=== PATIENT | male | born 1980 | race Caucasian/White ===

== ENCOUNTER 2020-01-26 18:28 | Emergency (ER) | payer BC, OTHER ==
[~2020-01-26] VITALS: Ht 172.7 cm; Wt 72.6 kg
[2020-01-26 20:44] LABS: Basophils # (auto) 0.1 10 ^3/uL (0-0.2); Basophils % (auto) 0.9 % (0.0-2.0); Eosinophils # (auto) 0.1 10 ^3/uL (0-0.8); Eosinophils % (auto) 1.4 % (0.0-7.0); Lymphocytes # (auto) 2.3 10 ^3/uL (0.4-5.4); Lymphocytes % (auto) 30.9 % (10.0-50.0); Mean Corpuscular Volume 91.1 fL (80.0-100.0); Monocytes # (auto) 0.4 10 ^3/uL (0-1.3); Monocytes % (auto) 5.4 % (0.0-12.0); Neutrophils # (auto) 4.6 10 ^3/uL (1.6-8.6); Neutrophils % (auto) 61.4 % (37.0-80.0); Platelet Count (auto) 268 10^3/uL (140-450); Red Blood Cells 4.82 10^6/uL (4.5-5.90); Red Cell Distribution Width 12.4 % (11.8-14.3); White Blood Cell 7.4 10^3/uL (4.4-10.8)
[2020-01-26 21:04] LABS: Alanine Aminotransferase 23 U/L (16-61); Albumin 4.5 g/dL (3.4-5.0); Anion Gap 7 (5-15); Aspartate Aminotransferase 21 U/L (15-37); BUN/Creatinine Ratio 5.4; Blood Urea Nitrogen 5 mg/dL (7-18); Calcium 10.1 mg/dL (8.5-10.1); Carbon Dioxide 28 mmol/L (21-32); Chloride 103 mmol/L (98-107); GFR African American 118 mL/min; GFR Non-African American 97 mL/min; Glucose 83 mg/dL (74-106); Magnesium 2.5 mg/dL (1.6-2.6); Partial Thromboplastin Time 25.6 sec (23.0-31.2); Potassium 3.4 mmol/L (3.5-5.1); Sodium 138 mmol/L (136-145)
[2020-01-26 21:09] LABS: Alkaline Phosphatase 89 U/L (45-117); Bilirubin, Total 2.6 mg/dL (0.2-1.0); Total Protein 8.5 g/dL (6.4-8.2)
[2020-01-26 23:56] LABS: Urine WBC None Seen /hpf (0 - 3)
[2020-01-27 00:07] LABS: Urine Amorphous Crystal MOD /hpf (None Seen); Urine Bacteria NONE SEEN /hpf (None Seen); Urine Blood Negative /uL (Negative); Urine Mucus FEW (None Seen); Urine Specific Gravity 1.015 (1.001-1.035)
[2020-01-27 02:26] VITALS: BP 137/76
== END 2020-01-27 02:45 | disposition short-term general hospital (02) ==
LOC: ER 18:28
DX: L72.0 Epidermal cyst (principal); G81.91 Hemiplegia, unspecified affecting right dominant side; R42 Dizziness and giddiness
CPT/HCPCS: 36415; 71045; 80053; 81001; 83735; 84484; 85025; 85379; 85610; 85730; 93005

== ENCOUNTER 2020-03-06 08:18 | Emergency (ER) | payer BC ==
[~2020-03-06] VITALS: Ht 172.7 cm; Wt 70.3 kg
[2020-03-06 08:47] VITALS: BP 136/85
== END 2020-03-06 09:17 | disposition home or self-care (01) ==
LOC: ER 08:18
DX: Z48.00 Encounter for change or removal of nonsurgical wound dressing (principal); F41.9 Anxiety disorder, unspecified

== ENCOUNTER → 2020-04-20 | Outpatient (CLI) | payer BC | END | disposition home or self-care (01) | LOC: LAB 10:54 | PROVIDERS: ATTEND Internal Medicine | DX: G93.0 Cerebral cysts (principal) | CPT/HCPCS: 36415; 82565; 84520 ==

== ENCOUNTER 2024-05-25 23:08 | Emergency (ER) | payer BC, OTHER ==
[~2024-05-25] VITALS: Ht 170.2 cm; Wt 74.5 kg
[2024-05-26] MEDS: FLUORESCEIN SOD OPTH TEST STRIP EACHEYE ONE ×2 (00:07→00:24)
[2024-05-26] MEDS: TETRACAINE HCL 0.5% OPTH(EYE) SOLN 4ML EACHEYE ONE (00:07)
[2024-05-26 00:08] VITALS: BP 141/82; PULSE 66; RESP 14; TEMP 98.4; O2SAT 100
--- NOTE | 2024-05-26 00:24 | ED.PDOC ---
Eye-HPI HPI Comments 44 YEAR OLD MALE PRESENTS TO ER WITH BILATERAL EYE COMPLAINT X1 DAY. PATIENT REPORTS THAT HE WAS STRETCHING WITH A "15 LB EXERCISE BAND" AT 9:00 P.M. PRIOR TO ARRIVAL TO ER WHEN THE EXERCISE BAND "FLEW UP" AND HIT HIM IN HIS FACE AND HAS SINCE BEEN EXPERIENCING 4/10 BILATERAL EYE PAIN. DENIES HEAD INJURY/LOC. DENIES USE OF MEDICATIONS FOR CURRENT SYMPTOMS. STATES HE DOES HAVE MINIMAL BLURRED VISION AND PHOTOSENSITIVITY TO RIGHT EYE AND STATES HIS SYMPTOMS HAVE BEEN IMPROVING. PATIENT PRESENTS TO ER AMBULATORY ON ARRIVAL, IN NO DISTRESS. DENIES HEADACHE, NAUSEA/VOMITING, NUMBNESS/TINGLING, EYE DRAINAGE, DOUBLE VISION/VISUAL FLOATERS, SKIN CHANGES OR ANY FURTHER SYMPTOMS/COMPLAINTS Chief Complaint: Eye Problem Time Seen by MD: 23:36 Primary Care Provider: UDAY Joiner Notes: Nurses Notes, Medications, Allergies Allergies: Coded Allergies: NO KNOWN ALLERGIES (Unverified , 03/06/20) Home Meds Active Scripts Erythromycin (Erythromycin) 5 Mg/Gm Oin, 1 MG OP 6XD for 7 Days, #1 OIN 0 Refills Prov:YOKO HERRERA 05/26/24 Information Source: Patient Mode of Arrival: Ambulatory Past Medical History Past Medical History (Other): BRAIN MASS Surgical History (Other): CRANIOTOMY -2020 Family History Family History: Unknown Social History Smoker: Non-Smoker Alcohol: Denies ETOH Use Drugs: Denies Drug Use Lives In: Home Constitutional: denies: chills, diaphoresis, fatigue, fever, malaise, sweats, weakness, others EENTM: reports: others ( STATED IN HPI) Respiratory: denies: cough, hemoptysis, orthopnea, SOB at rest, shortness of breath, SOB with excertion, stridor, wheezing, others Cardiovascular: denies: chest pain, dizzy spells, diaphoresis, Dyspnea on exertion, edema, irregular heart beat, left arm pain, lightheadedness, palpi tations, PND, syncope, others Gastrointestinal: denies: abdomen distended, abdominal pain, blood streaked bowels, constipated, diarrhea, dysphagia, difficulty swallowing, hematemesis, melena, nausea, poor appetite, poor fluid intake, rectal bleeding, rectal pain, vomiting, others Genitourinary: denies: burning, dysuria, flank pain, frequency, hematuria, incontinence, penile discharge, penile sore, pain, testicle pain, testicle swelling, urgency, others Neurological: denies: dizziness, fainting, headache, left sided numbness, left sided weakness, numbness, paresthesia, pre-existing deficit, right sided numbness, right sided weakness, seizure, speech problems, tingling, tremors, weakness, others Musculoskeletal: denies: back pain, gout, joint pain, joint swelling, muscle pain, muscle stiffness, neck pain, others Integumetry: denies: bruises, change in color, change in hair/nails, dryness, laceration, lesions, lumps, rash, wounds, others Allergic/Immunocompromised: denies: Difficulty Healing, Frequent Infections, Hives, Itching, others Hematologic/Lymphatic: denies: anemia, blood clots, easy bleeding, easy bruis ing, swollen glands, others Endocrine: denies: excessive hunger, excessive sweating, excessive thirst, exc essive urination, flushing, intolerance to cold, intolerance to heat, unexplained weight gain, unexplained weight loss, others Psychiatric: denies: anxiety, bipolar disorder, depression, hopeless, panic disorder, schizophrenia, sleepless, suicidal, others Physical Exam General Appearance: No Apparent Distress HEENT: PERRL/EOMI, Pharynx Normal, TMs Normal, Other (WOOD'S LAMP EXAMINATION BILATERAL EYES-SMALL CORNEAL ABRASION NOTED ON RIGHT AND MILD SUBCONJUNCTIVAL INJECTION NOTED BILATERALLY, NO DRAINAGE TO BILATERAL EYES NOTED. NO HYPHEMA OR TEAR DROP SIGN NOTED BILATERALLY. REMAINDER WOOD'S LAMP EXAMINATION- UNREMARKABLE. VISUAL ACUITY RIGHT EYE 20/20, VISUAL ACUITY LEFT EYE 20/20, VISUAL ACUITY USING BOTH EYES 20/20. NO SKIN CHANGES APPRECIATED TO BILATERAL EYES. ATTEMPTED TO CHECK IOP BUT [facility] WAS UNABLE TO BE LOCATED AT THIS HOSPITAL) Neck: Full Range of Motion, Non-Tender, Normal Respiratory: Chest Non-Tender, Lungs Clear, No Accessory Muscle Use, No Respiratory Distress, Normal Breath Sounds Cardiovascular: No Murmur, No Gallop, Regular Rate/Rhythm Breast Exam: Deferred Gastrointestinal: NOT DONE Genitalia: Deferred Pelvic: Deferred Rectal: Deferred Extremities: Normal capillary refill, Normal range of motion Neurologic: Alert, sports medicine specialist II-XII nml as Tested, No Motor Deficits, Normal Affect, Normal Mood, No Sensory Deficits Cerebellar Function: Normal Reflexes: Normal Skin: Dry, Normal Color, Warm Lymphatic: No Adenopathy Was a procedure done? Was a procedure done?: No Sedation Sedation?: No EENT DIFF Eye: Foreign Body-Intraocular, Glaucoma, Globe Rupture, Orbital Cellulits, Periorbital Cellulits X-Ray, Labs, Meds, VS Vital Signs Date Time Temp Pulse Resp B/P (MAP) Pulse Ox O2 Delivery O2 Flow Rate FiO2 05/26/24 00:08 98.4 66 14 141/82 (101) 100 98.4 05/26/24 00:08 66 14 100 Room Air 05/25/24 23:32 98.4 66 14 141/82 (101) 100 Current Medications Medications (Trade) Dose Ordered Sig/Tor Route Start Time Stop Time Status Last Admin Fluorescein Sodium (Ful-Alice) 1 mg ONCE ONCE EACHEYE 05/26/24 00:00 05/26/24 00:02 DC 05/26/24 00:07 Tetracaine HCl (Tetracaine 0.5% Opth Soln) 1 drop ONCE ONCE EACHEYE 05/26/24 00:00 05/26/24 00:02 DC 05/26/24 00:07 Fluorescein Sodium (Ful-Alice) 1 mg ONCE ONCE EACHEYE 05/26/24 00:30 05/26/24 00:31 DC 05/26/24 00:24 PATIENT: BOUBACAR MAIN ACCT: [id number] UNIT: [id number] : 1980 LOC: ER ROOM / BED: / AGE / SEX: 44 / M ADM STATUS: REG ER SERVICE [id number] ORDERING PHYSICIAN: YOKO HERRERA PROCEDURE(s): OB1CT - ORBITS WO CONTRAST REASON: BILATERAL EYE PAIN S/P INJURY WITH AN EXERCISE BAND ORDER NUMBER(s): [id number], ACCESSION NUMBER(s): [id number] INDICATION: BILATERAL EYE PAIN S/P INJURY WITH AN EXERCISE BAND EXAM DATE: 05/26/2024 12:21 AM COMPARISON: None TECHNIQUE: CT of the orbits without intravenous contrast. RADIATION DOSE: CTDIvol: mGy, DLP: mGy*cm FINDINGS: The orbits, globes and extraocular muscles appear unremarkable. No evidence of fracture. Paranasal sinuses, mastoid air cells, and middle ear cavities are clear. Prior suboccipital craniotomy with considerable ex-vacuo dilatation of the 4th ventricle. IMPRESSION: CT orbits within normal limits. ATED BY: SANTIAGO LLOYD MD DICTATED DATE/TIME: 05/26/2443 SIGNED BY: SANTIAGO LLOYD MD SIGNED DATE/TIME: 05/26/2443 CC: CT ORBIT WITHOUT CONTRAST REVIEWED FLUORESCEIN STAIN OPHTHALMIC ORDERED TETRACAINE OPHTHALMIC ORDERED PATIENT HAD IMPROVEMENT IN SYMPTOMS AND IN NO DISTRESS PRIOR TO DISCHARGE ADVISED TO FOLLOW UP WITH PCP AND OPHTHALMOLOGY IN 1-2 DAYS PATIENT VERBALIZED UNDERSTANDING AND AGREEABLE WITH CURRENT PLAN OF CARE ADVISED TO RETURN TO ER IMMEDIATELY IF SYMPTOMS WORSEN Time of 1ST Reevaluation: 00:22 Reevaluation 1ST: N/A Patient Education/Counseling: Diagnosis, Treatment, Prognosis, Need For Follow Up Family Education/Counseling: No Family Present Departure 1 Departure Time of Disposition: 01:02 Impression: Primary Impression: Corneal abrasion, right Qualified Codes: S05.01XA - Injury of conjunctiva and corneal abrasion without foreign body, right eye, initial encounter Additional Impression: Bilateral eye injuries Qualified Codes: S05.91XA - Unspecified injury of right eye and orbit, initial encounter; S05.92XA - Unspecified injury of left eye and orbit, initial encounter Disposition: 01 HOME / SELF CARE / HOMELESS Condition: Stable e-Prescriptions Erythromycin (Erythromycin) 5 Mg/Gm Oin 1 MG OP 6XD for 7 Days, #1 OIN 0 Refills Prov: YOKO HERRERA 05/26/24 Discharged With: Relative (Mother) Critical Care Note Critical Care Time?: No Stability Stability form required: No Heart Score Heart Score: Heart Score Response (Comments) Value History N/A 0 EKG N/A 0 Age N/A 0 Risk Factors N/A 0 Troponin N/A 0 Total 0 YOKO HERRERA May 26, 2024 00:24
--- NOTE | 2024-05-26 00:46 | DVH ---
INDICATION: BILATERAL EYE PAIN S/P INJURY WITH AN EXERCISE BAND EXAM DATE: 05/26/2024 12:21 AM COMPARISON: None TECHNIQUE: CT of the orbits without intravenous contrast. RADIATION DOSE: CTDIvol: mGy, DLP: mGy*cm FINDINGS: The orbits, globes and extraocular muscles appear unremarkable. No evidence of fracture. Paranasal sinuses, mastoid air cells, and middle ear cavities are clear. Prior suboccipital craniotomy with considerable ex-vacuo dilatation of the 4th ventricle. IMPRESSION: CT orbits within normal limits.
[2024-05-26] MEDS ORDERED: ERY05OO OP (01:06)
== END 2024-05-26 01:20 | disposition home or self-care (01) ==
LOC: ER 23:08
DX: S05.01XA Injury of conjunctiva and corneal abrasion without foreign body, right eye, initial encounter (principal); Z98.890 Other specified postprocedural states; W22.8XXA Striking against or struck by other objects, initial encounter; Y93.89 Activity, other specified; Y92.89 Other specified places as the place of occurrence of the external cause; Y99.8 Other external cause status
CPT/HCPCS: 70480